=== PATIENT | male | born 1970 | race Hispanic/Latino ===

== ENCOUNTER 2019-10-29 04:10 | Emergency (ER) | payer SELFPAY ==
--- NOTE | 2019-10-29 07:08 | Emergency Department Report ---
HPI - General Chief Complaint: Syncope Time Seen by Provider: 10/29/19 06:51 - HPI HPI: 49-year-old male presents to the emergency Department via PD with complaint of a headache, 2 episodes of blacking out and the complaint of some penile swelling. The patient says that the headache is frontal and goes towards the right ear. He denies any vision change, slurred speech or any neurological deficits. The patient also says that he has blacked out twice since about 2 AM this morning. He complains of some penile swelling but denies any penile pain, trauma, rash or lesions, dysuria, discharge. He denies any past mental history. He denies any recent history of tobacco, illicit drug or alcohol use/abuse. He is unable to tell me why he arrived by police instead of EMS. Denies having any primary care physician. ED Past Medical Hx - Past Medical History Previous Medical History?: No - Surgical History Past Surgical History?: No - Social History Smoking Status: Former Smoker Substance Use Type: Cocaine, Marijuana, Methamphetamines ED Review of Systems ROS: Stated complaint: HEADACHE BLACKOUT GROIN PAIN Other details as noted in HPI Comment: All other systems reviewed and negative Constitutional: denies: chills, fever Eyes: denies: eye pain, vision change ENT: denies: ear pain, throat pain Respiratory: denies: cough, shortness of breath Cardiovascular: syncope. denies: chest pain Gastrointestinal: denies: abdominal pain, vomiting Genitourinary: denies: dysuria, hematuria, discharge, testicular pain Musculoskeletal: denies: back pain, arthralgia Skin: denies: rash, lesions Neurological: headache. denies: weakness, numbness, paresthesias Physical Exam - Physical Exam Vital Signs: Vital Signs 10/29/19 10/29/19 10/29/19 04:17 04:22 05:48 Temperature 97.7 F 97.7 F Pulse Rate 105 H 105 H 76 Respiratory 105 H 18 15 Rate Blood Pressure 120/97 Blood Pressure 120/97 120/97 [Right] O2 Sat by Pulse 97 97 Oximetry 10/29/19 10/29/19 10/29/19 05:50 06:00 06:16 Temperature 97.5 F L Pulse Rate 84 73 69 Respiratory 12 21 16 Rate Blood Pressure 103/70 116/81 Blood Pressure 103/70 [Right] O2 Sat by Pulse 99 99 98 Oximetry 10/29/19 06:30 Temperature Pulse Rate 64 Respiratory 17 Rate Blood Pressure 97/65 Blood Pressure [Right] O2 Sat by Pulse 99 Oximetry Physical Exam: GENERAL: The patient is well-developed well-nourished. Disheveled appearance. HENT: Normocephalic. Atraumatic. Patient has moist mucous membranes. EYES: Extraocular motions are intact. Pupils equal reactive to light bilaterally. No nystagmus. NECK: Supple. Trachea is midline. CHEST/LUNGS: Clear to auscultation. There is no respiratory distress noted. HEART/CARDIOVASCULAR: Regular. There is no tachycardia. There is no murmur. ABDOMEN: Abdomen is soft, nontender. Patient has normal bowel sounds. There is no abdominal distention. SKIN: Skin is warm and dry. NEURO: The patient is awake, alert, and oriented. The patient is cooperative. The patient has no focal neurologic deficits. Normal speech. Cranial nerves II through XII grossly intact. No pronator drift. No dysmetria. MUSCULOSKELETAL: There is no tenderness or deformity. There is no limitation range of motion. There is no evidence of acute injury. ED Course Vital Signs 10/29/19 10/29/19 10/29/19 04:17 04:22 05:48 Temperature 97.7 F 97.7 F Pulse Rate 105 H 105 H 76 Respiratory 105 H 18 15 Rate Blood Pressure 120/97 Blood Pressure 120/97 120/97 [Right] O2 Sat by Pulse 97 97 Oximetry 10/29/19 10/29/19 10/29/19 05:50 06:00 06:16 Temperature 97.5 F L Pulse Rate 84 73 69 Respiratory 12 21 16 Rate Blood Pressure 103/70 116/81 Blood Pressure 103/70 [Right] O2 Sat by Pulse 99 99 98 Oximetry 10/29/19 06:30 Temperature Pulse Rate 64 Respiratory 17 Rate Blood Pressure 97/65 Blood Pressure [Right] O2 Sat by Pulse 99 Oximetry ED Medical Decision Making - Lab Data Result diagrams: 10/29/19 07:22 10/29/19 07:22 - EKG Data -: EKG Interpreted by Ms EKG shows normal: sinus rhythm, axis, intervals, QRS complexes, ST-T waves Rate: normal - EKG Data When compared to previous EKG there are: previous EKG unavailable Interpretation: normal EKG - Radiology Data Radiology results: report reviewed CT head without contrast INDICATION : Syncope, Headache. TECHNIQUE: Axial imaging performed from the skull apex through the skull base without the use of contrast. All CT scans at this location are performed using CT dose reduction for ALARA by means of automated exposure control. COMPARISON: None FINDINGS: Parenchyma: No acute intracranial hemorrhage or parenchymal abnormality. Ventricles: Ventricles are normal in size and appear symmetric. Soft tissues: Soft tissues including the orbits appear normal. Bones: No acute osseous abnorma lity. Sinuses: Sinuses and mastoid air cells are clear. IMPRESSION: No acute abnormality. - Medical Decision Making This patient presents to the emergency department with the complaint of a headache and some recent episodes of passing out. On examination he does not have any focal, motor or sensory deficits and his cranial nerves are intact. EKG was completed that does not show any ST elevation MA, ischemia or dysrhythmia. A CT scan of the head without contrast was done that does not show any bleed, shift, mass, ischemia or any other acute abnormality. His labs have been unremarkable including CBC, metabolic panel, troponin, d-dimer, urinalysis, blood alcohol level and UDS. The TSH level was slightly elevated but not to a level where I would be concerned for any significant hypothyroidism. His vital signs have essentially been normal throughout his ED course. The patient was reevaluated multiple times over more than 6 hours in the emergency department and he has remained awake, oriented, and stable appearing. The patient was seen ambulatory multiple times in the emergency department and he has a normal, stable gait. I went and spoke with the patient regarding his lab, EKG and imaging results and my plan for him to be discharged for outpatient follow-up with primary care. At this time I asked the patient how he will be getting home and he says "I will figure it out." Shortly afterwards the patient started asking to be seen by me again. At this time the patient says that he needs to remain in the emergency department or the hospital for multiple days "because I need to get some rest." Case management and rn social services were offered to the patient but he declines. The patient then continually is saying that he needs to remain in the emergency department. I once again explained his results and my plan for outpatient follow-up. At this point the patient became irate, cursing and yelling at both myself and ER staff. Patient was escorted out by security. - Differential Diagnosis vasovagal, orthostatic hypotension, tension headache, subarachnoid, dysrhyt Critical Care Time: No Critical care attestation.: If time is entered above; I have spent that time in minutes in the direct care of this critically ill patient, excluding procedure time. ED Disposition Clinical Impression: Syncope Qualifiers: Syncope type: unspecified Qualified Code(s): R55 - Syncope and collapse Headache Qualifiers: Headache type: unspecified Headache chronicity pattern: unspecified pattern Intractability: not intractable Qualified Code(s): R51 - Headache Disposition: DC-01 TO HOME OR SELFCARE Is pt being admited?: No Condition: Stable Instructions: Syncope (ED), Acute Headache (ED) Additional Instructions: Please follow-up with a primary care physician in the next few days and I have given you some referrals. Return to the emergency department immediately with any worsening of your symptoms, further episodes of passing out, or with any acute distress. Referrals: TARYN ELIZABETH MD [Staff Physician] - 2-3 Days [facility] [Outside] - 2-3 Days Time of Disposition: 10:26
[2019-10-29 07:52] VITALS: BP 102/71
[2019-10-29 08:01] LABS: Basophils # (Auto) 0.1 K/mm3 (0.0-0.1); Basophils % (Auto) 0.6 % (0.0-1.8); Eosinophils # (Auto) 0.2 K/mm3 (0.0-0.4); Eosinophils % (Auto) 1.3 % (0.0-4.3); Hematocrit 43.8 % (35.5-45.6); Hemoglobin 14.8 gm/dl (11.8-15.2); Lymphocytes # (Auto) 1.7 K/mm3 (1.2-5.4); Lymphocytes % (Auto) 13.4 % (13.4-35.0); Mean Corpuscular HGB Conc 34 % (32-34); Mean Corpuscular Volume 96 fl (84-94); Monocytes % (Auto) 7.6 % (0.0-7.3); Platelet Count 182 K/mm3 (140-440); Red Blood Count 4.58 M/mm3 (3.65-5.03); Red Cell Distribution Width 12.9 % (13.2-15.2)
[2019-10-29 08:27] LABS: Alanine Aminotransferase 11 units/L (7-56); Albumin 4.1 g/dL (3.9-5); BUN/Creatinine Ratio 12; Blood Urea Nitrogen 11 mg/dL (9-20); Calcium 9.5 mg/dL (8.4-10.2); Hemolysis Index 4
--- NOTE | 2019-10-29 08:43 | Cat Scan Report ---
CT head without contrast INDICATION : Syncope, Headache. TECHNIQUE: Axial imaging performed from the skull apex through the skull base without the use of con trast. All CT scans at this location are performed using CT dose reduction for ALARA by means of aut omated exposure control. COMPARISON: None FINDINGS: Parenchyma: No acute intracranial hemorrhage or parenchymal abnormality. Ventricles: Ventricles are normal in size and appear symmetric. Soft tissues: Soft tissues including the orbits appear normal. Bones: No acute osseous abnormality. Sinuses: Sinuses and mastoid air cells are clear. IMPRESSION: No acute abnormality. Signer Name: Govind Ureña MD Signed: 10/29/2019 8:38 AM Workstation Name: [id number]
[2019-10-29 10:12] LABS: Bilirubin,Urine NEG (Negative); Blood,Urine NEG (Negative); Color,Urine Yellow (Yellow); Mucus,Urine 1+ /HPF; Protein,Urine <15 mg/dL mg/dL (Negative); Urobilinogen,Urine < 2.0 mg/dL (<2.0)
[2019-10-29 10:20] LABS: Amphetamine Screen,Urine PRESUMPTIVE NEGATIVE; Benzodiazepines Screen,Urine PRESUMPTIVE NEGATIVE; Cannabinoid Screen,Urine PRESUMPTIVE NEGATIVE; Cocaine Screen,Urine PRESUMPTIVE NEGATIVE; Methadone Screen,Urine PRESUMPTIVE NEGATIVE; Opiate Screen,Urine PRESUMPTIVE NEGATIVE
== END 2019-10-29 10:55 | disposition home or self-care (01) ==
LOC: ED 04:10
DX: R55 Syncope and collapse (principal); R51 Headache; F14.10 Cocaine abuse, uncomplicated; F12.10 Cannabis abuse, uncomplicated
CPT/HCPCS: 36415; 70450; 80053; 80307; 80320; 81001; 84443; 84484; 85025; 85379; 93005; 93010; G0480

== ENCOUNTER 2019-11-10 22:49 | Emergency (ER) | payer SELFPAY ==
--- NOTE | 2019-11-10 23:05 | Emergency Department Report ---
<KARINE STEVENS - Last Filed: 11/11/19 12:43> ED General Adult HPI - General Stated complaint: CCM#9 Time Seen by Provider: 11/10/19 23:03 - Related Data Previous Rx's Medication Instructions Recorded Last Taken Type FLUoxetine [PROzac] 10 mg PO QDAY #30 tablet 11/16/19 Unknown Rx Melatonin [Melatonin 5MG TAB] 5 mg PO QHS PRN #30 tablet 11/16/19 Unknown Rx Nicotine [Habitrol] 21 mg TD QDAY #30 patch 11/16/19 Unknown Rx QUEtiapine [SEROquel] 100 mg PO DAILY #30 tablet 11/16/19 Unknown Rx Thiamine [Vitamin B-1] 100 mg PO QDAY #30 tablet 11/16/19 Unknown Rx traZODone [Desyrel] 100 mg PO QHS #30 tablet 11/16/19 Unknown Rx Allergies Allergy/AdvReac Type Severity Reaction Status Date / Time No Known Allergies Allergy Unverified 10/29/19 04:17 ED Past Medical Hx - Medications Home Medications: Home Medications Medication Instructions Recorded Confirmed Last Taken Type FLUoxetine [PROzac] 10 mg PO QDAY #30 tablet 11/16/19 Unknown Rx Melatonin [Melatonin 5MG TAB] 5 mg PO QHS PRN #30 tablet 11/16/19 Unknown Rx Nicotine [Habitrol] 21 mg TD QDAY #30 patch 11/16/19 Unknown Rx QUEtiapine [SEROquel] 100 mg PO DAILY #30 tablet 11/16/19 Unknown Rx Thiamine [Vitamin B-1] 100 mg PO QDAY #30 tablet 11/16/19 Unknown Rx traZODone [Desyrel] 100 mg PO QHS #30 tablet 11/16/19 Unknown Rx ED Course - Reevaluation(s) Reevaluation #1: 11/11/19 12:43 Patient is medically cleared at this time. Patient was seen by mental health assessors and it was suggested that the patient be placed on 1013. ED Medical Decision Making - Lab Data Result diagrams: 11/10/19 23:40 11/10/19 23:40 ED Disposition Clinical Impression: Psychosis Disposition: DC/TX-65 PSY HOSP/PSY UNIT Condition: Stable Referrals: PRIMARY CARE, [Primary Care Provider] - 3-5 Days Print Language: TAJIK <GOLD SHEETS - Last Filed: 12/08/19 22:33> ED General Adult HPI - History of Present Illness Initial comments: 49-year-old male with history of schizophrenia presents stating that he's been having suicidal thoughts. Patient states that he has been feeling suicidal for the past few days and states that he has wanted to slit his wrists. Patient states that he is also is homeless and got in the back of her car today that had tools and access to a business services assistant to try to accomplish this. Patient had no evidence of any trauma to his wrists. Patient requested a mental health evaluation after car owner [employer] called the police on the patient. Patient denies any homicidal ideation. Patient states that he has been noncompliant with his an tipsychotic medications. Patient states that he was recently admitted to the inpatient psychiatric facility but does not know the name of it. ED Review of Systems ROS: Stated complaint: CCM#9 Other details as noted in HPI Constitutional: denies: chills, fever Eyes: denies: eye pain, eye discharge, vision change ENT: denies: ear pain, throat pain Respiratory: denies: cough, shortness of breath, wheezing Cardiovascular: denies: chest pain, palpitations Endocrine: no symptoms reported Gastrointestinal: denies: abdominal pain, nausea, diarrhea Genitourinary: denies: urgency, dysuria Musculoskeletal: denies: back pain, joint swelling, arthralgia Skin: denies: rash, lesions Neurological: denies: headache, weakness, paresthesias Psychiatric: suicidal thoughts. denies: anxiety, depression Hematological/Lymphatic: denies: easy bleeding, easy bruising ED Past Medical Hx - Social History Smoking Status: Former Smoker Substance Use Type: Cocaine, Marijuana, Methamphetamines ED Physical Exam - General General appearance: alert, in no apparent distress, other (dishelved) - Head Head exam: Present: atraumatic, normocephalic - Eye Eye exam: Present: normal appearance - ENT ENT exam: Present: mucous membranes moist - Neck Neck exam: Present: normal inspection - Respiratory Respiratory exam: Present: normal lung sounds bilaterally. Absent: respiratory distress - Cardiovascular Cardiovascular Exam: Present: regular rate, normal rhythm. Absent: systolic murmur, diastolic murmur, rubs, gallop - GI/Abdominal GI/Abdominal exam: Present: soft, normal bowel sounds - Rectal Rectal exam: Present: deferred - Extremities Exam Extremities exam: Present: normal inspection - Back Exam Back exam: Present: normal inspection - Neurological Exam Neurological exam: Present: alert, oriented X3 - Psychiatric Psychiatric exam: Present: agitated, suicidal ideation. Absent: homicidal ideation - Skin Skin exam: Present: warm, dry, intact, normal color. Absent: rash ED Course Vital Signs 11/11/19 11/11/19 11/11/19 00:43 07:00 13:00 Temperature 97.6 F 97.7 F 97.7 F Pulse Rate 89 61 90 Respiratory 16 18 18 Rate Blood Pressure 93/47 97/67 102/76 [Right] O2 Sat by Pulse 94 96 99 Oximetry 11/11/19 11/12/19 11/12/19 20:23 02:10 07:00 Temperature 98.7 F 97.7 F 98.3 F Pulse Rate 103 H 78 67 Respiratory 18 18 18 Rate Blood Pressure 141/74 106/60 110/78 [Right] O2 Sat by Pulse 95 96 97 Oximetry 11/12/19 11/12/19 13:00 20:02 Temperature 97.9 F 97.4 F L Pulse Rate 72 72 Respiratory 20 20 Rate Blood Pressure 98/75 105/75 [Right] O2 Sat by Pulse 96 96 Oximetry ED Medical Decision Making - Lab Data Result diagrams: 11/10/19 23:40 11/10/19 23:40 - Medical Decision Making Patient placed on ED Hold. Patient is medically clear. Patient awaiting psyc hiatric consultation. - Differential Diagnosis Acute Psychosis; Polysubstance Abuse; Anemia; Electrolyte Abnormality Critical care attestation.: If time is entered above; I have spent that time in minutes in the direct care of this critically ill patient, excluding procedure time. ED Disposition Is pt being admited?: No
[2019-11-11] LABS: Basophils # (Auto) 0.1 K/mm3 (0.0-0.1); Basophils % (Auto) 0.7 % (0.0-1.8); Eosinophils # (Auto) 0.3 K/mm3 (0.0-0.4); Eosinophils % (Auto) 3.3 % (0.0-4.3); Hematocrit 41.8 % (35.5-45.6); Hemoglobin 14.2 gm/dl (11.8-15.2); Lymphocytes # (Auto) 1.6 K/mm3 (1.2-5.4); Lymphocytes % (Auto) 18.1 % (13.4-35.0); Mean Corpuscular HGB Conc 34 % (32-34); Mean Corpuscular Volume 96 fl (84-94); Monocytes # (Auto) 0.7 K/mm3 (0.0-0.8); Monocytes % (Auto) 7.6 % (0.0-7.3); Platelet Count 210 K/mm3 (140-440); Red Blood Count 4.34 M/mm3 (3.65-5.03); Red Cell Distribution Width 13.4 % (13.2-15.2)
[2019-11-11 00:27] LABS: Alanine Aminotransferase 11 units/L (7-56); Albumin 3.7 g/dL (3.9-5); BUN/Creatinine Ratio 17; Blood Urea Nitrogen 17 mg/dL (9-20); Calcium 8.8 mg/dL (8.4-10.2); Hemolysis Index 27
[2019-11-11 01:30] LABS: Bilirubin,Urine NEG (Negative); Blood,Urine NEG (Negative); Color,Urine Yellow (Yellow); Mucus,Urine FEW /HPF; Protein,Urine <15 mg/dL mg/dL (Negative); Urobilinogen,Urine < 2.0 mg/dL (<2.0)
[2019-11-11 01:35] LABS: Amphetamine Screen,Urine PRESUMPTIVE NEGATIVE; Benzodiazepines Screen,Urine PRESUMPTIVE NEGATIVE; Cocaine Screen,Urine PRESUMPTIVE NEGATIVE; Methadone Screen,Urine PRESUMPTIVE NEGATIVE; Opiate Screen,Urine PRESUMPTIVE NEGATIVE
[2019-11-11 01:51] LABS: Cannabinoid Screen,Urine PRESUMPTIVE POSITIVE
--- NOTE | 2019-11-12 15:28 | Progress Note ---
Subjective - Reason for Consult Consult date: 11/12/19 Reason for consult: Assess and manage mental health - Chief Complaint Chief complaint: Depression, SI with plan, A/V hallucinations n my interview with the patient, he lying down. Disheveled. The patient is A/O x 4. He's calm and cooperative. Mr. Kan complaints of suicidal ideation with plans of cutting his wrist as soon as "he gets his hands on something to do it with." He says if he had a gun right now he'd "shoot himself in the head with it." He says he "doesn't want to live anymore." Mr. Kan says he's been feeling depressed for awhile but never sought help for it. He says he's been self-medicating with friends "Ativan, risperidone and adrenalin." He says he drinks everyday, and uses nicotine occasionally. He denies any current use of hard drugs. But says in the past he's used "meth, cocaine and marijuana. " He c/o A/V hallucinations. He says he hears voices that tells him to "kill himself." He also says she sees "flashes of light and darkness." Mr. Kan says he's "sleeping better but only 1 to 2 hours a night." He says his appetite is good. PAST PSYCHIATRIC HISTORY: Diagnoses: Denies Suicide attempts or Self-harm behavior: says he's thought about it twice Prior psychiatric hospitalizations: Denies Substance Abuse history: Meth, Cocaine, THC, ETOH Previous psychiatric medications tried: Risperidone, ativan Outpatient treatment: [facility] PAST MEDICAL HISTORY: Denies any past medical history Family Psychiatric History None reported or documented SOCIAL HISTORY Marital Status: Single Living Arrangements: Homeless Employment Status: Unemployed Access to guns/weapons: denies Education: "some college" History of Abuse: Denies Legal History: Denies REVIEW OF SYSTEMS Constitutional: Negative for weight loss ENT: Negative for stridor Respiratory: Negative for cough or hemoptysis All other systems reviewed and are negative MENTAL STATUS General Appearance and Behavior: age appropriate. Dressed appropriately, good eye contact Cooperation: cooperative Psychomotor Behavior: within normal limits Mood: Depressed Affect and affective range: Congruent with stated mood Thought Process: goal oriented Thought Content: A/V Hallucinations Speech: Normal tone and pace Intellectual Functioning Goal oriented Suicidal Ideation: Yes, with active plan Homicidal Ideation: Denies Impulse Control: Intact Insight and Judgment: poor Memory: Good Attention: Ability to focus Orientation: person, place, time and situation Asessment Major Depression w/psychotic features RECOMMENDATIONS MEDICATIONS: Prozac 10mg po daily for depression and anxiety Trazodone 50mg po qhs for insomnia Risperidone 1mg po BID Risks, benefits and alternatives of medications discussed with the patient, questions answered and consent obtained from patient. PSYCHOTHERAPY: Supportive psychotherapy provided MEDICAL: Per primary team DELIRIUM PRECAUTIONS: Please re-orient patient frequently, keep lights on during the day, and minimize benzodiazepines and opiates as these medications could worsen patient's confusion. 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 Please contact with any questions and/or concerns. Thank you for this consult Mental Status Exam - Vital signs Last Vital Signs Temp 97.9 F 11/12/19 13:00 Pulse 72 11/12/19 13:00 Resp 20 11/12/19 13:00 BP 98/75 11/12/19 13:00 Pulse Ox 96 11/12/19 13:00
[2019-11-12] MEDS ORDERED: risperiDONE 0.25 MG TAB PO ONE (15:46)
[2019-11-12] MEDS ORDERED: chlordiazePOXIDE 25 MG CAP PO PRN ×2 (15:50)
[2019-11-12] MEDS ORDERED: HALOPERIDOL LACTATE 5 MG/1 ML INJ IV PRN (15:50)
[2019-11-12] MEDS ORDERED: risperiDONE 1 MG TAB PO ONE (16:00)
[2019-11-12] MEDS ORDERED: FLUoxetine 10 MG TAB PO ONE (16:00)
[2019-11-12] MEDS ORDERED: MELATONIN 5 MG TAB PO PRN (16:28)
[2019-11-12 20:03] VITALS: BP 105/75
[2019-11-12] MEDS ORDERED: risperiDONE 1 MG TAB PO SCH (22:00)
[2019-11-13] MEDS ORDERED: FLUoxetine 10 MG TAB PO SCH (10:00)
[2019-11-13] MEDS ORDERED: traZODone 50 MG TAB PO SCH (10:00)
[2019-11-13] MEDS ORDERED: THIAMINE 100 MG TAB PO SCH (10:00)
== END 2019-11-12 20:26 ==
LOC: ED 22:49 → EEVIPCON 22:49 → ED 11-12 20:26
DX: F23 Brief psychotic disorder (principal); F12.10 Cannabis abuse, uncomplicated; F14.10 Cocaine abuse, uncomplicated; F15.10 Other stimulant abuse, uncomplicated; Z87.891 Personal history of nicotine dependence
CPT/HCPCS: 36415; 80053; 80307; 80320; 81001; 85025; G0480

== ENCOUNTER 2019-11-12 18:19 | Inpatient (IN) | payer OTHER ==
[2019-11-13 07:33] LABS: Basophils % (Auto) 0.4 % (0.0-1.8); Eosinophils # (Auto) 0.3 K/mm3 (0.0-0.4); Eosinophils % (Auto) 3.6 % (0.0-4.3); Hematocrit 43.9 % (35.5-45.6); Hemoglobin 14.9 gm/dl (11.8-15.2); Lymphocytes # (Auto) 1.4 K/mm3 (1.2-5.4); Lymphocytes % (Auto) 20.4 % (13.4-35.0); Mean Corpuscular HGB Conc 34 % (32-34); Mean Corpuscular Volume 96 fl (84-94); Monocytes # (Auto) 0.6 K/mm3 (0.0-0.8); Monocytes % (Auto) 8.9 % (0.0-7.3); Platelet Count 202 K/mm3 (140-440); Red Blood Count 4.59 M/mm3 (3.65-5.03); Red Cell Distribution Width 13.3 % (13.2-15.2)
[2019-11-13 07:55] LABS: BUN/Creatinine Ratio 20; Blood Urea Nitrogen 16 mg/dL (9-20); Calcium 9.3 mg/dL (8.4-10.2); HDL Cholesterol 33 mg/dL (40-59); Hemolysis Index 5; LDL Cholesterol,Direct 148 mg/dL (50-130)
--- NOTE | 2019-11-13 08:02 | History and Physical Report ---
GP History & Physical - History of Present Illness Date of admission: 11/12/19 Reason for Admission: Danger to self Chief Complaint: SI with plan, A/V hallucinations, depression History of Present Illness: I have reviewed the medical chart and spoken with the nursing staff about the patient plan and progress. The nurse note states the patient has a hx of schizophrenia and states he has command auditory hallucinations telling him to cut his wrist and start over. When asked where was he going to start over, he sated "I do not know it is between God the father and me." Pt states he has been non compliant on his meds as he is homeless and has no income. In my interview with the patient this morning he is in bed. Awake. He says he slept "a little bit better." Mr Limon says he is still hearing the voices telling him to "kill myself and calling me by my full name." He also says he sees smoke and "thought he had a cigarette." He verbalizes being depressed and will "cut his wrist if given the opportunity." He says his appetite is good. He's asking about breakfast during the interview. Mr. Limon says he's paranoid because he's afraid he will "do something and end up back here." He says "I forgot to tell you yesterday I was paranoid schizophrenic." PAST PSYCHIATRIC HISTORY: Diagnoses: States paranoid schizophrenia Suicide attempts or Self-harm behavior: Thoughts of it twice Prior psychiatric hospitalizations: Denies Substance Abuse history: Meth, Cocaine, THC, ETOH Previous psychiatric medications tried: Rispridone, ativan (states he tried it from friend) Outpatient treatment: Denies PAST MEDICAL HISTORY: Denies any past medical history Family Psychiatric History None reported or documented SOCIAL HISTORY Marital Status: Single Living Arrangements: Homeless Employment Status: Unemployed Access to guns/weapons: Denies Education: "some college" History of Abuse: Denies Legal History: Denies REVIEW OF SYSTEMS ROS cannot be reliably obtained from the patient due to her confusion and somnolence. REVIEW OF SYSTEMS Constitutional: Negative for weight loss ENT: Negative for stridor Respiratory: Negative for cough or hemoptysis All other systems reviewed and are negative Diagnoses: Major Depression w/Psychotic features, Schizophrenia Treatment Plan Patient will be admitted for inpatient psychiatric evaluation, medication adjustment and close monitoring The patient's behavior, mood, sleep and appetite will be closely monitored. Patient will be enrolled in individual and group therapeutic sessions and encouraged to attend. Patient will be provided with a safe and structured environment. Patient's physical health needs will be addressed by the Hospitalist. Hospitalist Consulted Labs including CBC, CMP, Lipid profile and Hemoglobin A1C ordered Social Assessment will be completed and the [employer]er will work with patient and family to ensure a suitable and safe disposition Medication adjustment will be made as clinically indicated Usual Wellness Mandaen/Preservation: - Prozac 10mg po daily - Seroquel 25mg PO BID - Trazodone 50 mg po QHS & 50 mg po QHS PRN between 10 PM & 2 AM for insomnia - Melatonin 5mg po QHS The patient agreed on the treatment plan, understood the risk, benefit, alternative treatment, potential consequence of no treatment, and gave informed consent. Legal Status: Voluntary Reaction to Hospitalization: Accepting Medications and Allergies Allergies Allergy/AdvReac Type Severity Reaction Status Date / Time No Known Allergies Allergy Unverified 10/29/19 04:17 Home Medications Medication Instructions Recorded Confirmed Last Taken Type risperiDONE 8 cc PO DAILY 11/13/19 11/13/19 Unknown History Substance History - Substance History Hx Tobacco Use: Yes Tobacco Type: Cigarettes Cigarettes Packs Per Day: 1 Alcohol Use: Yes (daily use) How many drinks do you have in one day that contain alcohol: patient unsure Past psychiatric history - past Psychiatric treatment and history Psych: Anxiety, Addictions, Depression Results - Results Labs/Vitals: Laboratory Last Values WBC 7.1 K/mm3 (4.5-11.0) 11/13/19 06:43 RBC 4.59 M/mm3 (3.65-5.03) 11/13/19 06:43 Hgb 14.9 gm/dl (11.8-15.2) 11/13/19 06:43 Hct 43.9 % (35.5-45.6) 11/13/19 06:43 MCV 96 fl (84-94) H 11/13/19 06:43 MCH 33 pg (28-32) H 11/13/19 06:43 MCHC 34 % (32-34) 11/13/19 06:43 RDW 13.3 % (13.2-15.2) 11/13/19 06:43 Plt Count 202 K/mm3 (140-440) 11/13/19 06:43 Lymph % (Auto) 20.4 % (13.4-35.0) 11/13/19 06:43 [place] % (Auto) 8.9 % (0.0-7.3) H 11/13/19 06:43 Eos % (Auto) 3.6 % (0.0-4.3) 11/13/19 06:43 Baso % (Auto) 0.4 % (0.0-1.8) 11/13/19 06:43 Lymph # 1.4 K/mm3 (1.2-5.4) 11/13/19 06:43 [place] # 0.6 K/mm3 (0.0-0.8) 11/13/19 06:43 Eos # 0.3 K/mm3 (0.0-0.4) 11/13/19 06:43 Baso # 0.0 K/mm3 (0.0-0.1) 11/13/19 06:43 Seg Neutrophils % 66.7 % (40.0-70.0) 11/13/19 06:43 Seg Neutrophils # 4.7 K/mm3 (1.8-7.7) 11/13/19 06:43 Sodium 138 mmol/L (137-145) 11/13/19 06:43 Potassium 4.7 mmol/L (3.6-5.0) 11/13/19 06:43 Chloride 101.3 mmol/L (98-107) 11/13/19 06:43 Carbon Dioxide 24 mmol/L (22-30) 11/13/19 06:43 Anion Gap 17 mmol/L 11/13/19 06:43 BUN 16 mg/dL (9-20) 11/13/19 06:43 Creatinine 0.8 mg/dL (0.8-1.5) 11/13/19 06:43 Estimated GFR > 60 ml/min 11/13/19 06:43 BUN/Creatinine Ratio 20 % 11/13/19 06:43 Glucose 96 mg/dL (75-100) 11/13/19 06:43 POC Glucose 81 (70-105) 11/12/19 22:15 Calcium 9.3 mg/dL (8.4-10.2) 11/13/19 06:43 Triglycerides 150 mg/dL (2-149) H 11/13/19 06:43 Cholesterol 198 mg/dL (50-199) 11/13/19 06:43 LDL Cholesterol Direct 148 mg/dL (50-130) H 11/13/19 06:43 HDL Cholesterol 33 mg/dL (40-59) L 11/13/19 06:43 Cholesterol/HDL Ratio 6.00 % 11/13/19 06:43 Last Vital Signs Temp 98.7 F 11/12/19 22:12 Pulse 74 11/12/19 22:12 Resp 18 11/12/19 22:12 BP 104/72 11/12/19 22:12 Pulse Ox 96 11/12/19 22:12 Physical Examination - Constitutional Vitals: Vital Signs Temp Pulse Resp BP Pulse Ox 98.7 F 74 18 104/72 96 11/12/19 22:12 11/12/19 22:12 11/12/19 22:12 11/12/19 22:12 11/12/19 22:12 Temperature -Last 24 Hours Temperature 98.7 F Mental Status Exam - Vital signs Last Vital Signs Temp 98.7 F 11/12/19 22:12 Pulse 74 11/12/19 22:12 Resp 18 11/12/19 22:12 BP 104/72 11/12/19 22:12 Pulse Ox 96 11/12/19 22:12 Physician Certification - Certification Statement Physician Certification Statement: This is an acknowledgement statement that WERO LIMON is a 49 year old M who requires inpatient psychiatric admission for treatment which could reasonably be expected to improve the patient's condition for Estimated period of time patient will need to remain in the hospital: [ ] Plan for post-hospital care: [ ]
[2019-11-13] MEDS ORDERED: HALOPERIDOL LACTATE 5 MG/1 ML INJ IV PRN (08:29)
[2019-11-13] MEDS ORDERED: chlordiazePOXIDE 25 MG CAP PO PRN ×2 (08:29)
--- NOTE | 2019-11-13 09:10 | Consultation ---
History of Present Illness - Reason for Consult Consult date: 11/13/19 - History of Present Illness patient has a hx of schizophrenia and states he has command auditory hallucinations telling him to cut his wrist and start over. When asked where was he going to start over, he sated "I do not know it is between God the father and me." Medications and Allergies Allergies Allergy/AdvReac Type Severity Reaction Status Date / Time No Known Allergies Allergy Unverified 10/29/19 04:17 Home Medications Medication Instructions Recorded Confirmed Last Taken Type risperiDONE 8 cc PO DAILY 11/13/19 11/13/19 Unknown History Active Meds: Active Medications Chlordiazepoxide HCl (Librium) 50 mg PO Q1HR PRN PRN Reason: CIWA-Ar 8-15 Chlordiazepoxide HCl (Librium) 100 mg PO Q1HR PRN PRN Reason: CIWA-Ar 16-25 Docusate Sodium (Colace) 100 mg PO BID [facility] Fluoxetine HCl (Prozac) 10 mg PO QDAY [facility] Haloperidol Lactate (Haldol) 5 mg IV Q1HR PRN PRN Reason: Unrespon. to mult. doses BZD's Melatonin (Melatonin) 5 mg PO QHS PRN PRN Reason: Sleep Nicotine (Habitrol) 21 mg TD QDAY [facility] Quetiapine Fumarate (Seroquel) 25 mg PO BID [facility] Thiamine HCl (Vitamin B-1) 100 mg PO QDAY [facility] Trazodone HCl (Desyrel) 50 mg PO QHS [facility] Exam - Constitutional Vitals: Temp Pulse Resp BP Pulse Ox 98.7 F 74 18 104/72 96 11/12/19 22:12 11/12/19 22:12 11/12/19 22:12 11/12/19 22:12 11/12/19 22:12 Results - Labs CBC & Chem 7: 11/13/19 06:43 11/13/19 06:43 Labs: Abnormal lab results 11/13/19 11/13/19 Range/Units 06:43 06:43 MCV 96 H (84-94) fl MCH 33 H (28-32) pg [place] % (Auto) 8.9 H (0.0-7.3) % Triglycerides 150 H (2-149) mg/dL LDL Cholesterol Direct 148 H (50-130) mg/dL HDL Cholesterol 33 L (40-59) mg/dL
[2019-11-13] MEDS ORDERED: HALOPERIDOL LACTATE 5 MG/1 ML INJ IM PRN (10:02)
[2019-11-13] MEDS: NICOTINE 21 MG/24 HR PATCH TD SCH (10:40)
[2019-11-13] MEDS: THIAMINE 100 MG TAB PO SCH (10:41)
[2019-11-13] MEDS: DOCUSATE SODIUM 100 MG CAP PO SCH ×2 (10:41→21:42)
[2019-11-13] MEDS: QUEtiapine 25 MG TAB PO SCH ×2 (10:41→21:42)
[2019-11-13] MEDS: FLUoxetine 10 MG TAB PO SCH (10:45)
[2019-11-13] MEDS ORDERED: FLU VACC QUAD 2019-20 (3 YR UP)/PF 60 MCG/0.5 ML SYRINGE IM ONE (12:00)
[2019-11-13] MEDS: traZODone 50 MG TAB PO SCH (21:42)
--- NOTE | 2019-11-14 08:47 | Progress Note ---
Subjective Date of service: 11/14/19 Principal diagnosis: Major Depression w/Psychotic features, Schizophrenia Subjective Comment: I interviewed the patient this morning. Medical records reviewed and patient's progress was discussed with unit staff. Per Nursing Note: Patient was medication compliant last evening. He was inpatient with waiting on medications even though they were given early. He attended group with minimal interaction. Patient went to bed around 2100 and awoke once for some water. He rested quietly and presents as sleeping 8 plus hours. The patient has been flirting with and touching women patients. The patient is a 3%ana case, and should be discharged Sunday to a assisted. In my interview with the patient this morning, the patient stated that he was hearing voices, and having thoughts of suicide. The patient stated he had no plan of how he would do it, just thoughts. Review of Symptoms: Constitutional: Negative for weight loss ENT: Negative for stridor Respiratory: Negative for cough or hemoptysis All other systems reviewed and are negative MSE Appearance: Wearing appropriate clothing. Good hygiene Behavior: Pleasant and cooperative. Mood: "Good" Affect: Congruent with stated mood Thought Process: Goal directed Speech: Normal rate. Thought Content Harmfulness Denies SI/HI Hallucinations: patient denies Delusions: none elicited Consciousness: alert. Cognition/Memory: normal. Insight/Judgment: Limited. Diagnoses: Major Depression w/Psychotic features, Schizophrenia Treatment Plan Due to the psychiatric conditions and treatment listed in the Assessment and Plan - the patient requires continued hospitalization. Will continue inpatient treatment to allow for medication adjustment and monitoring. Will continue q15 min safety checks. Will encourage the use of environmental modifications and non-pharmacologic approaches for the management of behavioral and psychological symptoms. Medication adjustment made today: None Will continue current psych medications Monitor for medication side effects. The patient will continue on medications for physical illnesses, and Hospitalist will closely monitor these Continue intensive physical and occupational therapies. Monitor patient's mood, sleep, appetite, and behavior closely. Encourage patient to participate in individual and group therapeutic sessions on the rodríguez. Will provide a safe and therapeutic environment for patient. Estimated length of stay: 3 days Medications and Allergies Allergies Allergy/AdvReac Type Severity Reaction Status Date / Time No Known Allergies Allergy Unverified 10/29/19 04:17 Home Medications Medication Instructions Recorded Confirmed Last Taken Type risperiDONE 8 cc PO DAILY 11/13/19 11/13/19 Unknown History Active Meds: Active Medications Chlordiazepoxide HCl (Librium) 50 mg PO Q1HR PRN PRN Reason: CIWA-Ar 8-15 Chlordiazepoxide HCl (Librium) 100 mg PO Q1HR PRN PRN Reason: CIWA-Ar 16-25 Docusate Sodium (Colace) 100 mg PO BID [facility] Last Admin: 11/13/19 21:42 Dose: 100 mg Documented by: Fluoxetine HCl (Prozac) 10 mg PO QDAY [facility] Last Admin: 11/13/19 10:45 Dose: 10 mg Documented by: Haloperidol Lactate (Haldol) 5 mg IM Q6H PRN PRN Reason: Unrespon. to mult. doses BZD's Melatonin (Melatonin) 5 mg PO QHS PRN PRN Reason: Sleep Nicotine (Habitrol) 21 mg TD QDAY [facility] Last Admin: 11/13/19 10:40 Dose: 21 mg Documented by: Quetiapine Fumarate (Seroquel) 25 mg PO BID [facility] Last Admin: 11/13/19 21:42 Dose: 25 mg Documented by: Thiamine HCl (Vitamin B-1) 100 mg PO QDAY [facility] Last Admin: 11/13/19 10:41 Dose: 100 mg Documented by: Trazodone HCl (Desyrel) 50 mg PO QHS [facility] Last Admin: 11/13/19 21:42 Dose: 50 mg Documented by: Results - Results Labs/Vitals: Laboratory Last Values WBC 7.1 K/mm3 (4.5-11.0) 11/13/19 06:43 RBC 4.59 M/mm3 (3.65-5.03) 11/13/19 06:43 Hgb 14.9 gm/dl (11.8-15.2) 11/13/19 06:43 Hct 43.9 % (35.5-45.6) 11/13/19 06:43 MCV 96 fl (84-94) H 11/13/19 06:43 MCH 33 pg (28-32) H 11/13/19 06:43 MCHC 34 % (32-34) 11/13/19 06:43 RDW 13.3 % (13.2-15.2) 11/13/19 06:43 Plt Count 202 K/mm3 (140-440) 11/13/19 06:43 Lymph % (Auto) 20.4 % (13.4-35.0) 11/13/19 06:43 [place] % (Auto) 8.9 % (0.0-7.3) H 11/13/19 06:43 Eos % (Auto) 3.6 % (0.0-4.3) 11/13/19 06:43 Baso % (Auto) 0.4 % (0.0-1.8) 11/13/19 06:43 Lymph # 1.4 K/mm3 (1.2-5.4) 11/13/19 06:43 [place] # 0.6 K/mm3 (0.0-0.8) 11/13/19 06:43 Eos # 0.3 K/mm3 (0.0-0.4) 11/13/19 06:43 Baso # 0.0 K/mm3 (0.0-0.1) 11/13/19 06:43 Seg Neutrophils % 66.7 % (40.0-70.0) 11/13/19 06:43 Seg Neutrophils # 4.7 K/mm3 (1.8-7.7) 11/13/19 06:43 Sodium 138 mmol/L (137-145) 11/13/19 06:43 Potassium 4.7 mmol/L (3.6-5.0) 11/13/19 06:43 Chloride 101.3 mmol/L (98-107) 11/13/19 06:43 Carbon Dioxide 24 mmol/L (22-30) 11/13/19 06:43 Anion Gap 17 mmol/L 11/13/19 06:43 BUN 16 mg/dL (9-20) 11/13/19 06:43 Creatinine 0.8 mg/dL (0.8-1.5) 11/13/19 06:43 Estimated GFR > 60 ml/min 11/13/19 06:43 BUN/Creatinine Ratio 20 % 11/13/19 06:43 Glucose 96 mg/dL (75-100) 11/13/19 06:43 POC Glucose 81 (70-105) 11/12/19 22:15 Calcium 9.3 mg/dL (8.4-10.2) 11/13/19 06:43 Triglycerides 150 mg/dL (2-149) H 11/13/19 06:43 Cholesterol 198 mg/dL (50-199) 11/13/19 06:43 LDL Cholesterol Direct 148 mg/dL (50-130) H 11/13/19 06:43 HDL Cholesterol 33 mg/dL (40-59) L 11/13/19 06:43 Cholesterol/HDL Ratio 6.00 % 11/13/19 06:43 Last Vital Signs Temp 98.1 F 11/13/19 19:40 Pulse 71 11/13/19 19:40 Resp 17 11/13/19 19:40 BP 92/64 11/13/19 19:40 Pulse Ox 95 11/13/19 19:40
[2019-11-14] MEDS: QUEtiapine 25 MG TAB PO SCH ×2 (09:18→21:02)
[2019-11-14] MEDS: DOCUSATE SODIUM 100 MG CAP PO SCH ×2 (09:18→21:02)
[2019-11-14] MEDS: FLUoxetine 10 MG TAB PO SCH (09:18)
[2019-11-14] MEDS: NICOTINE 21 MG/24 HR PATCH TD SCH (09:18)
[2019-11-14] MEDS: THIAMINE 100 MG TAB PO SCH (09:19)
[2019-11-14] MEDS: traZODone 50 MG TAB PO SCH (21:02)
--- NOTE | 2019-11-15 08:07 | Progress Note ---
Subjective Date of service: 11/15/19 Principal diagnosis: Schizophrenia Subjective Comment: I interviewed the patient this morning. Medical records reviewed and patient's progress was discussed with unit staff. Nursing note states patient is alert and oriented x's 4, calm, and cooperative. currently medication compliant. social with his peers. ambulates independently. denies hi. patient states he continues to have SI with no plan. patient states he continues to have AH and the last VH was 2 days ago. voices are telling him, "kill yourself, you'd be better off that way." In my interview with the patient this morning, the patient is lying in bed asleep. Easily arouses. He says he's "not feeling too good because of the voices." He says they are "invasive" and keeps telling him to "kill myself." He says he still feels like he wants to harm himself but has no plan. He says he feels "angry because he's unsure of what to do." When asked Mr. Kan to explain, he replied "not sure what to do about my life." Mr. Kan says he did not sleep well. He says he was "up and down all night." He says his appetite is good. Review of Symptoms: Constitutional: Negative for weight loss ENT: Negative for stridor Respiratory: Negative for cough or hemoptysis All other systems reviewed and are negative MSE Appearance: Wearing appropriate clothing. In bed. Behavior: calm, cooperative Mood: "not feeling good, angry" Affect: Congruent with stated mood Thought Process: Goal directed Speech: Normal rate. Thought Content Harmfulness: SI with no plan Hallucinations: Auditory Hallucinations Delusions: none elicited Consciousness: alert. Cognition/Memory: Good Insight/Judgment: Limited Diagnoses: Major Depression w/Psychotic features. History of Schizophrenia Treatment Plan Due to the psychiatric conditions and treatment listed in the Assessment and Plan - the patient requires continued hospitalization. Will continue inpatient treatment to allow for medication adjustment and monitoring. Will continue q15 min safety checks. Will encourage the use of environmental modifications and non-pharmacologic approaches for the management of behavioral and psychological symptoms. Will continue current psych medications Medication adjustments made today: Increased Seroquel 100mg po daily to help with hallucinations and depression. Increased Trazodone 100mg to help induce sleep Monitor for medication side effects. The patient will continue on medications for physical illnesses, and Hospitalist will closely monitor these Continue intensive physical and occupational therapies. Monitor patient's mood, sleep, appetite, and behavior closely. Encourage patient to participate in individual and group therapeutic sessions on the rodríguez. Will provide a safe and therapeutic environment for patient. Estimated Length of stay, 2 days Medications and Allergies Allergies Allergy/AdvReac Type Severity Reaction Status Date / Time No Known Allergies Allergy Unverified 10/29/19 04:17 Home Medications Medication Instructions Recorded Confirmed Last Taken Type risperiDONE 8 cc PO DAILY 11/13/19 11/13/19 Unknown History Active Meds: Active Medications Chlordiazepoxide HCl (Librium) 50 mg PO Q1HR PRN PRN Reason: CIWA-Ar 8-15 Chlordiazepoxide HCl (Librium) 100 mg PO Q1HR PRN PRN Reason: CIWA-Ar 16-25 Docusate Sodium (Colace) 100 mg PO BID [facility] Last Admin: 11/14/19 21:02 Dose: 100 mg Documented by: Fluoxetine HCl (Prozac) 10 mg PO QDAY [facility] Last Admin: 11/14/19 09:18 Dose: 10 mg Documented by: Haloperidol Lactate (Haldol) 5 mg IM Q6H PRN PRN Reason: Unrespon. to mult. doses BZD's Melatonin (Melatonin) 5 mg PO QHS PRN PRN Reason: Sleep Nicotine (Habitrol) 21 mg TD QDAY [facility] Last Admin: 11/14/19 09:18 Dose: 21 mg Documented by: Quetiapine Fumarate (Seroquel) 25 mg PO BID [facility] Last Admin: 11/14/19 21:02 Dose: 25 mg Documented by: Thiamine HCl (Vitamin B-1) 100 mg PO QDAY [facility] Last Admin: 11/14/19 09:19 Dose: 100 mg Documented by: Trazodone HCl (Desyrel) 50 mg PO QHS [facility] Last Admin: 11/14/19 21:02 Dose: 50 mg Documented by: Results - Results Labs/Vitals: Laboratory Last Values WBC 7.1 K/mm3 (4.5-11.0) 11/13/19 06:43 RBC 4.59 M/mm3 (3.65-5.03) 11/13/19 06:43 Hgb 14.9 gm/dl (11.8-15.2) 11/13/19 06:43 Hct 43.9 % (35.5-45.6) 11/13/19 06:43 MCV 96 fl (84-94) H 11/13/19 06:43 MCH 33 pg (28-32) H 11/13/19 06:43 MCHC 34 % (32-34) 11/13/19 06:43 RDW 13.3 % (13.2-15.2) 11/13/19 06:43 Plt Count 202 K/mm3 (140-440) 11/13/19 06:43 Lymph % (Auto) 20.4 % (13.4-35.0) 11/13/19 06:43 [place] % (Auto) 8.9 % (0.0-7.3) H 11/13/19 06:43 Eos % (Auto) 3.6 % (0.0-4.3) 11/13/19 06:43 Baso % (Auto) 0.4 % (0.0-1.8) 11/13/19 06:43 Lymph # 1.4 K/mm3 (1.2-5.4) 11/13/19 06:43 [place] # 0.6 K/mm3 (0.0-0.8) 11/13/19 06:43 Eos # 0.3 K/mm3 (0.0-0.4) 11/13/19 06:43 Baso # 0.0 K/mm3 (0.0-0.1) 11/13/19 06:43 Seg Neutrophils % 66.7 % (40.0-70.0) 11/13/19 06:43 Seg Neutrophils # 4.7 K/mm3 (1.8-7.7) 11/13/19 06:43 Sodium 138 mmol/L (137-145) 11/13/19 06:43 Potassium 4.7 mmol/L (3.6-5.0) 11/13/19 06:43 Chloride 101.3 mmol/L (98-107) 11/13/19 06:43 Carbon Dioxide 24 mmol/L (22-30) 11/13/19 06:43 Anion Gap 17 mmol/L 11/13/19 06:43 BUN 16 mg/dL (9-20) 11/13/19 06:43 Creatinine 0.8 mg/dL (0.8-1.5) 11/13/19 06:43 Estimated GFR > 60 ml/min 11/13/19 06:43 BUN/Creatinine Ratio 20 % 11/13/19 06:43 Glucose 96 mg/dL (75-100) 11/13/19 06:43 POC Glucose 81 (70-105) 11/12/19 22:15 Hemoglobin A1c 5.2 % (4-6) 11/15/19 05:43 Calcium 9.3 mg/dL (8.4-10.2) 11/13/19 06:43 Triglycerides 150 mg/dL (2-149) H 11/13/19 06:43 Cholesterol 198 mg/dL (50-199) 11/13/19 06:43 LDL Cholesterol Direct 148 mg/dL (50-130) H 11/13/19 06:43 HDL Cholesterol 33 mg/dL (40-59) L 11/13/19 06:43 Cholesterol/HDL Ratio 6.00 % 11/13/19 06:43 Last Vital Signs Temp 98.1 F 11/14/19 19:17 Pulse 66 11/14/19 19:18 Resp 18 11/14/19 19:17 BP 95/59 11/14/19 19:17 Pulse Ox 95 11/14/19 19:18
[2019-11-15] MEDS: THIAMINE 100 MG TAB PO SCH (10:06)
[2019-11-15] MEDS: DOCUSATE SODIUM 100 MG CAP PO SCH ×2 (10:06→21:33)
[2019-11-15] MEDS: QUEtiapine 100 MG TAB PO SCH (10:06)
[2019-11-15] MEDS: NICOTINE 21 MG/24 HR PATCH TD SCH (10:06)
[2019-11-15] MEDS: FLUoxetine 10 MG TAB PO SCH (10:06)
[2019-11-15] MEDS: MELATONIN 5 MG TAB PO PRN (21:33)
[2019-11-15] MEDS: traZODone 100 MG TAB PO SCH (21:33)
--- NOTE | 2019-11-16 08:07 | Progress Note ---
Subjective Date of service: 11/16/19 Principal diagnosis: Schizophrenia Subjective Comment: I interviewed the patient this morning. Medical records reviewed and patient's progress was discussed with unit staff. Nursing staff reports that patient pt is medication compliant, good appetite, interacting with peers.alert and cooperative, calm and cooperative. In my interview with the patient this morning, the patient reports mood as " doing fair". He report is appetite as "very good" and I am feeling good". He stated "was up all night, the voices are more, telling me to kill myself, but I wont do it" Review of Symptoms: Constitutional: Negative for weight loss ENT: Negative for stridor Respiratory: Negative for cough or hemoptysis All other systems reviewed and are negative MSE Appearance: Wearing appropriate clothing. Good hygiene Behavior: Pleasant and cooperative. Mood: "depressed" Affect: Congruent with stated mood Thought Process: Goal directed Speech: Normal rate. Thought Content Harmfulness Denies SI/HI Hallucinations: reports hearing voices Delusions: none elicited Consciousness: alert. Cognition/Memory: normal. Insight/Judgment: Limited. Diagnoses: Cocaine use disorder Cocaine induced mood and psychotic disorder History of Schizophrenia Treatment Plan Due to the psychiatric conditions and treatment listed in the Assessment and Pato n - the patient requires continued hospitalization. Will continue inpatient treatment to allow for medication adjustment and monitoring. Will continue q15 min safety checks. Will encourage the use of environmental modifications and non-pharmacologic approaches for the management of behavioral and psychological symptoms. Will continue current psych medications Monitor for medication side effects. The patient will continue on medications for physical illnesses, and Hospitalist will closely monitor these Continue intensive physical and occupational therapies. Monitor patient's mood, sleep, appetite, and behavior closely. Encourage patient to participate in individual and group therapeutic sessions on the rodríguez. Will provide a safe and therapeutic environment for patient. I plan to discharge patient in am tomorrow. He was informed of this plan. In my professional opinion, patient has achieved the maximum benefits of inpatient treatment at this time. Continuing inpatient treatment is contraindicated as it will reinforce maladaptive behaviors. Medications and Allergies Allergies Allergy/AdvReac Type Severity Reaction Status Date / Time No Known Allergies Allergy Unverified 10/29/19 04:17 Home Medications Medication Instructions Recorded Confirmed Last Taken Type risperiDONE 8 cc PO DAILY 11/13/19 11/13/19 Unknown History Active Meds: Active Medications Chlordiazepoxide HCl (Librium) 50 mg PO Q1HR PRN PRN Reason: CIWA-Ar 8-15 Chlordiazepoxide HCl (Librium) 100 mg PO Q1HR PRN PRN Reason: CIWA-Ar 16-25 Docusate Sodium (Colace) 100 mg PO BID [facility] Last Admin: 11/15/19 21:33 Dose: 100 mg Documented by: Fluoxetine HCl (Prozac) 10 mg PO QDAY [facility] Last Admin: 11/15/19 10:06 Dose: 10 mg Documented by: Haloperidol Lactate (Haldol) 5 mg IM Q6H PRN PRN Reason: Unrespon. to mult. doses BZD's Melatonin (Melatonin) 5 mg PO QHS PRN PRN Reason: Sleep Last Admin: 11/15/19 21:33 Dose: 5 mg Documented by: Nicotine (Habitrol) 21 mg TD QDAY [facility] Last Admin: 11/15/19 10:06 Dose: 21 mg Documented by: Quetiapine Fumarate (Seroquel) 100 mg PO DAILY [facility] Last Admin: 11/15/19 10:06 Dose: 100 mg Documented by: Thiamine HCl (Vitamin B-1) 100 mg PO QDAY [facility] Last Admin: 11/15/19 10:06 Dose: 100 mg Documented by: Trazodone HCl (Desyrel) 100 mg PO QHS [facility] Last Admin: 11/15/19 21:33 Dose: 100 mg Documented by: Results - Results Labs/Vitals: Laboratory Last Values WBC 7.1 K/mm3 (4.5-11.0) 11/13/19 06:43 RBC 4.59 M/mm3 (3.65-5.03) 11/13/19 06:43 Hgb 14.9 gm/dl (11.8-15.2) 11/13/19 06:43 Hct 43.9 % (35.5-45.6) 11/13/19 06:43 MCV 96 fl (84-94) H 11/13/19 06:43 MCH 33 pg (28-32) H 11/13/19 06:43 MCHC 34 % (32-34) 11/13/19 06:43 RDW 13.3 % (13.2-15.2) 11/13/19 06:43 Plt Count 202 K/mm3 (140-440) 11/13/19 06:43 Lymph % (Auto) 20.4 % (13.4-35.0) 11/13/19 06:43 Hunt % (Auto) 8.9 % (0.0-7.3) H 11/13/19 06:43 Eos % (Auto) 3.6 % (0.0-4.3) 11/13/19 06:43 Baso % (Auto) 0.4 % (0.0-1.8) 11/13/19 06:43 Lymph # 1.4 K/mm3 (1.2-5.4) 11/13/19 06:43 Hunt # 0.6 K/mm3 (0.0-0.8) 11/13/19 06:43 Eos # 0.3 K/mm3 (0.0-0.4) 11/13/19 06:43 Baso # 0.0 K/mm3 (0.0-0.1) 11/13/19 06:43 Seg Neutrophils % 66.7 % (40.0-70.0) 11/13/19 06:43 Seg Neutrophils # 4.7 K/mm3 (1.8-7.7) 11/13/19 06:43 Sodium 138 mmol/L (137-145) 11/13/19 06:43 Potassium 4.7 mmol/L (3.6-5.0) 11/13/19 06:43 Chloride 101.3 mmol/L (98-107) 11/13/19 06:43 Carbon Dioxide 24 mmol/L (22-30) 11/13/19 06:43 Anion Gap 17 mmol/L 11/13/19 06:43 BUN 16 mg/dL (9-20) 11/13/19 06:43 Creatinine 0.8 mg/dL (0.8-1.5) 11/13/19 06:43 Estimated GFR > 60 ml/min 11/13/19 06:43 BUN/Creatinine Ratio 20 % 11/13/19 06:43 Glucose 96 mg/dL (75-100) 11/13/19 06:43 POC Glucose 81 (70-105) 11/12/19 22:15 Hemoglobin A1c 5.2 % (4-6) 11/15/19 05:43 Calcium 9.3 mg/dL (8.4-10.2) 11/13/19 06:43 Triglycerides 150 mg/dL (2-149) H 11/13/19 06:43 Cholesterol 198 mg/dL (50-199) 11/13/19 06:43 LDL Cholesterol Direct 148 mg/dL (50-130) H 11/13/19 06:43 HDL Cholesterol 33 mg/dL (40-59) L 11/13/19 06:43 Cholesterol/HDL Ratio 6.00 % 11/13/19 06:43 Last Vital Signs Temp 98.1 F 11/15/19 19:36 Pulse 68 11/15/19 19:36 Resp 18 11/15/19 19:36 BP 90/60 11/15/19 19:36 Pulse Ox 96 11/15/19 19:36
[2019-11-16] MEDS: NICOTINE 21 MG/24 HR PATCH TD SCH (09:54)
[2019-11-16] MEDS: QUEtiapine 100 MG TAB PO SCH (09:54)
[2019-11-16] MEDS: FLUoxetine 10 MG TAB PO SCH (09:54)
[2019-11-16] MEDS: DOCUSATE SODIUM 100 MG CAP PO SCH ×2 (09:55→21:32)
[2019-11-16] MEDS: THIAMINE 100 MG TAB PO SCH (09:55)
[2019-11-16] MEDS: MELATONIN 5 MG TAB PO PRN (21:32)
[2019-11-16] MEDS: traZODone 100 MG TAB PO SCH (21:32)
[2019-11-17 08:33] VITALS: BP 96/60
--- NOTE | 2019-11-17 08:35 | Discharge Summary ---
Providers - Providers Date of Admission: 11/12/19 20:08 Date of discharge: 11/17/19 Attending physician: ANALIA AHN MD 11/13/19 07:00 Consult to Physician [CONS] Routine Comment: Consulting Provider: CORRINA BLACKMON Physician Instructions: Reason For Exam: H&P MEDICAL MGMT Primary care physician: INSTALLATION TECHNICIAN Hospitalization Reason for admission: Depressed, hearing voices and suicidal Condition: Stable Hospital course: The patient was provided inpatient psychiatric treatment with safe and suppor tive environment, group/individual therapy, psychiatric medication, medication adjustment, adverse effect monitor, medical evaluation, medical treatment, social service assessment, social support meeting, placement assessment and psycho-education. The patients mood, cognition, behavior, motivation, compliance to treatment and appreciation on family/social support are improved and stabilized. At the time of discharge, the patient had no suicidal ideas, no homicidal ideas, no aggressive thoughts, no endangering behavior and no debilitating adverse effects. The patient agreed on the treatment plan, understood the risk, benefit, alternative treatment, potential consequence of no treatment, and gave informed consent. Disposition: DC-01 TO HOME OR SELFCARE Allergies/Adverse Reactions: Allergies No Known Allergies Allergy (Unverified 10/29/19 04:17) Vital Signs: Last Vital Signs Temp 98.1 F 11/16/19 19:42 Pulse 60 11/16/19 19:42 Resp 18 11/16/19 19:42 BP 96/60 11/16/19 19:42 Pulse Ox 95 11/16/19 19:42 Last Lab: Laboratory Last Values WBC 7.1 K/mm3 (4.5-11.0) 11/13/19 06:43 RBC 4.59 M/mm3 (3.65-5.03) 11/13/19 06:43 Hgb 14.9 gm/dl (11.8-15.2) 11/13/19 06:43 Hct 43.9 % (35.5-45.6) 11/13/19 06:43 MCV 96 fl (84-94) H 11/13/19 06:43 MCH 33 pg (28-32) H 11/13/19 06:43 MCHC 34 % (32-34) 11/13/19 06:43 RDW 13.3 % (13.2-15.2) 11/13/19 06:43 Plt Count 202 K/mm3 (140-440) 11/13/19 06:43 Lymph % (Auto) 20.4 % (13.4-35.0) 11/13/19 06:43 Payne % (Auto) 8.9 % (0.0-7.3) H 11/13/19 06:43 Eos % (Auto) 3.6 % (0.0-4.3) 11/13/19 06:43 Baso % (Auto) 0.4 % (0.0-1.8) 11/13/19 06:43 Lymph # 1.4 K/mm3 (1.2-5.4) 11/13/19 06:43 Payne # 0.6 K/mm3 (0.0-0.8) 11/13/19 06:43 Eos # 0.3 K/mm3 (0.0-0.4) 11/13/19 06:43 Baso # 0.0 K/mm3 (0.0-0.1) 11/13/19 06:43 Seg Neutrophils % 66.7 % (40.0-70.0) 11/13/19 06:43 Seg Neutrophils # 4.7 K/mm3 (1.8-7.7) 11/13/19 06:43 Sodium 138 mmol/L (137-145) 11/13/19 06:43 Potassium 4.7 mmol/L (3.6-5.0) 11/13/19 06:43 Chloride 101.3 mmol/L (98-107) 11/13/19 06:43 Carbon Dioxide 24 mmol/L (22-30) 11/13/19 06:43 Anion Gap 17 mmol/L 11/13/19 06:43 BUN 16 mg/dL (9-20) 11/13/19 06:43 Creatinine 0.8 mg/dL (0.8-1.5) 11/13/19 06:43 Estimated GFR > 60 ml/min 11/13/19 06:43 BUN/Creatinine Ratio 20 % 11/13/19 06:43 Glucose 96 mg/dL (75-100) 11/13/19 06:43 POC Glucose 81 (70-105) 11/12/19 22:15 Hemoglobin A1c 5.2 % (4-6) 11/15/19 05:43 Calcium 9.3 mg/dL (8.4-10.2) 11/13/19 06:43 Triglycerides 150 mg/dL (2-149) H 11/13/19 06:43 Cholesterol 198 mg/dL (50-199) 11/13/19 06:43 LDL Cholesterol Direct 148 mg/dL (50-130) H 11/13/19 06:43 HDL Cholesterol 33 mg/dL (40-59) L 11/13/19 06:43 Cholesterol/HDL Ratio 6.00 % 11/13/19 06:43 Core Measure Documentation - Palliative Care Palliative Care/ Comfort Measures: Not Applicable - Core Measures Any of the following diagnoses?: none Exam - Constitutional Vitals: Temp Pulse Resp BP Pulse Ox 98.1 F 60 18 96/60 95 11/16/19 19:42 11/16/19 19:42 11/16/19 19:42 11/16/19 19:42 11/16/19 19:42 General appearance: Present: no acute distress, well-nourished - EENT Eyes: Present: PERRL, EOM intact ENT: hearing intact, clear oral mucosa - Neck Neck: Present: supple, normal ROM - Respiratory Respiratory effort: normal Plan Activity: advance as tolerated Weight Bearing Status: Weight Bear as Tolerated Care Plan Goals: Maintain good and stable mental health. Plan of Treatment: The patient should be compliant with medications, not to use drugs and not to drink alcohol. The patient understands that if suicidal ideas, homicidal ideas, or any endangering thoughts arise, the patient should immediately seek for emergent assistance including but not limited to crisis hot line and emergency room. Follow up with outpatient Psychiatrist and PCP within 7 - 14 days of discharge. Health Concerns: None Assessment: Cocaine use disorder Follow up with: PRIMARY CARE, [Primary Care Provider] - 7 Days Prescriptions: traZODone [Desyrel] 100 mg PO QHS #30 tablet Melatonin [Melatonin 5MG TAB] 5 mg PO QHS PRN #30 tablet PRN Reason: Sleep Nicotine [Habitrol] 21 mg TD QDAY #30 patch FLUoxetine [PROzac] 10 mg PO QDAY #30 tablet QUEtiapine [SEROquel] 100 mg PO DAILY #30 tablet Thiamine [Vitamin B-1] 100 mg PO QDAY #30 tablet
== END 2019-11-17 09:00 | disposition home or self-care (01) | DRG 885 ==
LOC: 3A 18:19 → UNDOADMIN 18:19 → 5A 20:08
PROVIDERS: ADMIT Psychiatry & Neurology Psychiatry; ATTEND Psychiatry & Neurology Psychiatry
DX: F32.3 Major depressive disorder, single episode, severe with psychotic features (principal); F17.210 Nicotine dependence, cigarettes, uncomplicated; F14.94 Cocaine use, unspecified with cocaine-induced mood disorder; Z59.0 Homelessness
CPT/HCPCS: 36415; 80048; 80061; 82962; 83036; 85025; 90686; G0378